=== PATIENT | male | born 1990 | race Caucasian/White ===

== ENCOUNTER 2021-01-08 12:26 | Observation (INO) ==
[2021-01-08] MEDS ORDERED: Famotidine IV 10 MG/ML 2 ml VIAL (20 mg) ONE ×2 (12:39)
[2021-01-08] MEDS ORDERED: methylPREDNISolone 125 mg 2 ML VIAL ONE (12:40)
[2021-01-08] MEDS ORDERED: diPHENhydraMINE IV 50 MG/ML 1 ml VIAL (BENADRYL) ONE (12:40)
[2021-01-08] MEDS ORDERED: NS 0.9% 1000 ml BAG 1,000 ML IV ONE (12:54)
[2021-01-08] MEDS: methylPREDNISolone SOD 40 mg/ml 1 ml VIAL IV SCH (18:38)
[2021-01-08] MEDS: diPHENhydraMINE IV 50 MG/ML 1 ml VIAL (BENADRYL) IV SCH (18:38)
[2021-01-08 18:47] LABS: ABS Lymphocytes 0.6 10^3/ul (1.0-4.8); ABS Monocytes 0.1 10^3/ul (0-0.8); ABS Neutrophils 9.7 10^3/ul (1.5-7.7); Hematocrit 43 % (42-52); Hemoglobin 14.7 g/dL (14.0-18.0); Lymphocyte % 5.4 %; Mean Corpuscular HGB Conc 34 g/dL (31-36); Mean Corpuscular Hemoglobin 31 pg (27-31); Mean Corpuscular Volume 90 fL (80-94); Mean Platelet Volume 10.9 fL (7.4-10.4); Platelet Count 174 10^3/uL (150-450); Red Cell Distribution Width 13 % (10-15); White Blood Count 10.5 10^3/uL (3.5-10.8)
[2021-01-08 18:54] LABS: Rapid COVID-19 Molecular Undetected (Undetected)
[2021-01-08] MEDS ORDERED: Lactated Ringers 1000 ml BAG 1,000 ML IV SCH (19:00)
[2021-01-08 19:03] LABS: Albumin 4.8 g/dL (3.2-5.2); Albumin/Globulin Ratio 1.9 (1-3); Calcium 9.5 mg/dL (8.6-10.3); Globulin 2.5 g/dL (2-4); Potassium 3.9 mmol/L (3.5-5.0); Total Bilirubin 0.7 mg/dL (0.2-1.0); Total Protein 7.3 g/dL (6.4-8.9)
[2021-01-08] MEDS: Famotidine IV 10 MG/ML 2 ml VIAL (20 mg) IV SLOW PU SCH (21:37)
[2021-01-09] MEDS: methylPREDNISolone SOD 40 mg/ml 1 ml VIAL IV SCH ×2 (00:11→05:57)
[2021-01-09] MEDS: diPHENhydraMINE IV 50 MG/ML 1 ml VIAL (BENADRYL) IV SCH ×2 (00:11→05:57)
[2021-01-09] MEDS: Famotidine IV 10 MG/ML 2 ml VIAL (20 mg) IV SLOW PU SCH (08:25)
[2021-01-09 10:34] VITALS: BP 121/66
[2021-01-11] MEDS ORDERED: Flu vaccine *QUAD* 2021-22* 0.5 ML SYRINGE IM ONE (09:00)
== END 2021-01-09 10:40 | disposition home or self-care (01) | DRG 918 ==
LOC: ED 12:26 → ICU 18:08 → SUATTDRO 18:08 → INTOOBSV 18:08 → ED 18:14
PROVIDERS: ADMIT Internal Medicine; ATTEND Internal Medicine